=== PATIENT | male | born 1960 | race Caucasian/White ===

== ENCOUNTER 2020-05-02 07:41 | Day surgery (SDC) | payer BC, OTHER ==
[~2020-05-02 07:41] MED LIST: Lactated Ringers 1,000 ML IV SCH; Lidocaine 1%/Sod Bicarbonate in NS 8.4% 1 ML Syringe IDERM PRN; Sodium Chloride 0.9% 10 ML Syringe FLUSH PRN
[2020-05-02] MEDS ORDERED: Propofol 200 MG/20 ML SDV ONE (07:45)
[2020-05-02] MEDS ORDERED: Ondansetron 4 MG/2 ML SDV ONE (07:45)
[2020-05-02] MEDS ORDERED: Lidocaine 1% 4 ML ONE (07:45)
[2020-05-02] MEDS ORDERED: Ketamine 500 mg/10 ML MDV ONE (07:45)
[2020-05-02] MEDS ORDERED: fentaNYL 100 MCG/2 ML SDV ONE (07:45)
[2020-05-02] MEDS ORDERED: Midazolam 1 MG/ML 2 ML SDV ONE (07:45)
[2020-05-02] MEDS ORDERED: ceFAZolin 1 GM Vial ONE (07:55)
[2020-05-02] MEDS ORDERED: Sodium Chloride 0.9% 100 ML ONE (08:00)
--- NOTE | 2020-05-02 08:25 | PCM.HP.2 ---
H&P History of Present Illness - General Date of Service: 05/02/20 - History of Present Illness Initial Comments - Free Text/Narative: This is a 60-year-old male with past medical history of atrial fibrillation, diabetes mellitus and hypertension who comes today for an outpatient debridement of a chronic decubitus ulcer the base of his left fifth metatarsal head. As per patient he has been dealing with this wound for little over a year and has taken multiple antibiotic regimens without improvement for which he was referred by primary care provider to Dr. Anand, podiatry for evaluation recommended incision and debridement as well as external osteotomy of the metatarsal head. Patient states his pain normally is at a 6 out of 10 however currently he is pain-free. Has been taking antibiotics for the past 20 days. Has a prior left ankle fusion performed in 2013 without any perioperative complications. On Xarelto for atrial fibrillation, last dose was a couple of days ago. Allergies to shellfish, doxazosin and sitagliptin. (States sitagliptin just "did not sit with well with him") - Related Data Allergies/Adverse Reactions: Allergies Allergy/AdvReac Type Severity Reaction Status Date / Time doxazosin [From Cardura] Allergy Other Verified 05/01/20 14:25 shellfish derived Allergy Airway Verified 05/01/20 14:25 Tightness sitagliptin [From Januvia] Allergy Other Verified 05/01/20 14:25 Home Medications: Home Meds metFORMIN HCl [Metformin HCl] 1,000 mg PO BID 03/24/18 [History] Rivaroxaban [Xarelto] 20 mg PO DAILY@1800 #30 tablet 03/26/18 [Rx] Acetaminophen/HYDROcodone [[place] 325-5 MG] 1 - 2 tab PO Q6H 09/13/19 [History] Benazepril HCl 40 mg PO DAILY 09/13/19 [History] Cinnamon Bark [Cinnamon] 500 mg PO BID 09/13/19 [History] Diclofenac Sodium [Voltaren 1% Gel] 1 dose TOP QID PRN 09/13/19 [History] Empagliflozin [Jardiance] 25 mg PO DAILY 09/13/19 [History] Metoprolol Succinate 200 mg PO DAILY 09/13/19 [History] Rosuvastatin [Crestor] 10 mg PO DAILY 09/13/19 [History] Semaglutide [Ozempic] 1.5 ml SQ SHAH 09/13/19 [History] Sertraline [Zoloft] 50 mg PO DAILY 09/13/19 [History] Silver Sulfadiazine [Silvadene 1% Cream 20 GM] 1 dose TOP ASDIRECTED PRN 09/13/19 [History] glipiZIDE [Glipizide ER] 2.5 mg PO DAILY 09/13/19 [History] Past Medical History HEENT History: Reports: Impaired Vision Other HEENT History: wears glasses, excessive cerumen Cardiovascular History: Reports: Afib, High Cholesterol, Hypertension Respiratory History: Reports: Sleep Apnea Other Respiratory History: uses c pap Gastrointestinal History: Reports: Inflammatory Bowel Disease, Other (See Below) Other Gastrointestinal History: rectal fissure Genitourinary History: Reports: Diabetic Nephropathy [employer]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: 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 Other Musculoskeletal History: congenital pes cavus, right carpal tunnel syndrome Neurological History: 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 Psychiatric History: Reports: Anxiety, Depression Endocrine/Metabolic History: Reports: Diabetes, Type II, Obesity/BMI 30+ Hematologic History: 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 Immunologic History: 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 Oncologic (Cancer) History: 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 Dermatologic History: Reports: Other (See Below) Other Dermatologic History: diabetic foot ulcer, abcess, hematoma with evacuation, skin lesion with excision - Infectious Disease History Infectious Disease History: 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 - Past Surgical History Head Surgeries/Procedures: 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 Cardiovascular Surgical History: 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 Respiratory Surgical History: 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 GI Surgical History: Reports: Colonoscopy Female Surgical History: 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 Male Surgical History: 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 Endocrine Surgical History: 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 Neurological Surgical History: 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 Musculoskeletal Surgical History: Reports: Other (See Below) Other Musculoskeletal Surgeries/Procedures:: left ankle fusion, left ankle arth roscopy/arthrodesis Oncologic Surgical History: 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 Social & Family History - Family History Family Medical History: Noncontributory - Tobacco Use Smoking Status *Q: Never Smoker - Caffeine Use Caffeine Use: Reports: Soda - Recreational Drug Use Recreational Drug Use: No Drug Use in Last 12 Months: No - Living Situation & Occupation Living situation: Reports: , with Spouse Occupation: Employed H&P Review of Systems - Review of Systems: Review Of Systems: Comprehensive ROS is negative, except as noted in HPI. Exam - Exam Exam: See Below - Exam Quality Assessment: Other (Limited due to body habitus) General: Alert, Oriented, Cooperative. No: Mild Distress, Moderate Distress, Severe Distress HEENT: Conjunctiva Clear, EACs Clear, EOMI, Hearing Intact, Mucosa Moist & [place] Neck: Supple. No: Lymphadenopathy Lungs: Normal Respiratory Effort, Decreased Breath Sounds. No: Crackles, Rales, Rhonchi, Rub, Stridor, Wheezing Cardiovascular: Regular Rate, Regular Rhythm. No: Systolic Murmur, Diastolic Murmur, Rubs, Gallop/S3, Gallop/S4 GI/Abdominal Exam: Distended. No: Guarding, Rigid, Rebound, Tender Back Exam: No: Paraspinal Tenderness, Vertebral Tenderness Extremities: Normal Capillary Refill, Other (Trace edema up to mid [place]fall on RLE. Left foot with ankle and forced eversion, there is a scar of approximately 10 cm from prior surgery. 2 open wounds on the lateral aspect around the fifth metatarsal head and dorsal and plantar aspect of the foot, no active drainage. Capillary refill is preserved.) Peripheral Pulses: 2+: Radial (L), Radial (R), Dorsalis Pedis (L), Dorsalis Pedis (R) Skin: Warm, Dry Neuro Extensive - Mental Status: Alert, Oriented x3 Psychiatric: Alert, Anxious - Problem List (1) Diabetes mellitus SNOMED Code(s): 03196209 ICD Code: E11.9 - TYPE 2 DIABETES MELLITUS WITHOUT COMPLICATIONS Status: Acute Current Visit: Yes Qualifiers: Diabetes mellitus type: type 2 Diabetes mellitus terminal clerk insulin use: without longterm use Diabetes mellitus complication status: with neurologic complications Diabetes mellitus complication detail: with unspecified neuropathy Qualified Code(s): E11.40 - Type 2 diabetes mellitus with diabetic neuropathy, unspecified (2) Atrial fibrillation with controlled ventricular response SNOMED Code(s): 878315887 ICD Code: I48.91 - UNSPECIFIED ATRIAL FIBRILLATION Status: Acute Current Visit: Yes (3) Chronic anticoagulation SNOMED Code(s): 771986196 ICD Code: Z79.01 - HALF-WAY (CURRENT) USE OF ANTICOAGULANTS Status: Acute Current Visit: Yes (4) Dyslipidemia SNOMED Code(s): 608689412 ICD Code: E78.5 - HYPERLIPIDEMIA, UNSPECIFIED Status: Acute Current Visit: Yes (5) Peripheral neuropathy SNOMED Code(s): 596863789 ICD Code: G62.9 - POLYNEUROPATHY, UNSPECIFIED Status: Acute Current Visit: Yes (6) Chronic diabetic ulcer of left foot determined by examination SNOMED Code(s): 011802696 ICD Code: E11.621 - TYPE 2 DIABETES MELLITUS WITH FOOT ULCER; L97.529 - NON- PRESSURE CHRONIC ULCER OTH PRT LEFT FOOT W UNSP SEVERITY Status: Acute Current Visit: Yes (7) Obstructive sleep apnea on CPAP SNOMED Code(s): 96996759 ICD Code: G47.33 - OBSTRUCTIVE SLEEP APNEA (ADULT) (PEDIATRIC); Z99.89 - DEPENDENCE ON OTHER ENABLING MACHINES AND DEVICES Status: Acute Current Visit: Yes (8) Anxiety SNOMED Code(s): 98806683 ICD Code: F41.9 - ANXIETY DISORDER, UNSPECIFIED Status: Acute Current Visit: Yes (9) Depression SNOMED Code(s): 35447061 ICD Code: F32.9 - MAJOR DEPRESSIVE DISORDER, SINGLE EPISODE, UNSPECIFIED Status: Acute Current Visit: Yes (10) Hypertension SNOMED Code(s): 94003672 ICD Code: I10 - ESSENTIAL (PRIMARY) HYPERTENSION Status: Acute Current Visit: No (11) Morbidly obese SNOMED Code(s): 952054814 ICD Code: E66.01 - MORBID (SEVERE) OBESITY DUE TO EXCESS CALORIES Status: Acute Current Visit: No Problem List Initiated/Reviewed/Updated: Yes Assessment/Plan Comment:: Chronic diabetic ulcer of left foot determined by examination Diabetes mellitus, YeC1u-3.5% (01/2020) Peripheral neuropathy Came in today for podiatry procedure Home management with metformin, Jardiance, Ozempic and glipizide Awsda-lj-qaut glucose today is 136 Took all medications yesterday Pre-operative labs Serum glucose of 153 and a urine glucose greater than 500, urine glucose likely lab error as kidney threshold for glucose is greater than 180 CBC with no white count, hemoglobin of 14.4 and hematocrit of 45, platelets of 154,000 Chemistry with normal electrolytes, GFR of 62 and normal LFTs MRSA and COVID screen are negative PLAN Plan for incision and debridement of left foot and ex-osteotectomy of left fifth metatarsal head Atrial fibrillation with controlled ventricular response, on Xarelto Chronic anticoagulation Rate controlled this morning Last time he took Xarelto was 2 days ago Rate controlled with diltiazem Did not take medication this morning PLAN Administer diltiazem now Telemetry during procedure Continue Xarelto as per surgical recommendations DVT prophylaxis with compression stockings as recommended Hypertension BP today none 130s/80s Home management with benazepril and metoprolol succinate PLAN Administer metoprolol now PRN hydralazine for SBP greater than 200 and DBP greater than 100 Dyslipidemia No acute issues PLAN Continue statin after surgery Obstructive sleep apnea on CPAP Morbid obesity Compliant with CPAP PLAN Monitor CO2 and O2 levels during surgery Oxygen replacement in periop as needed Anxiety Depression No acute issues PLAN Continue home Sertraline after surgery Perioperative risks Estimated risk probability for perioperative myocardial infarction or cardiac arrest (Tyler score) is 0.14% Estimated risk of adverse outcome with noncardiac surgery is very low risk Estimated rate of myocardial infarction, pulmonary edema, ventricular fibrillation, cardiac arrest, or complete heart block (revised cardiac indexLee criteria) is 0.4% - Mortality Measure Prognosis:: Good
[2020-05-02] MEDS ORDERED: Diltiazem IR 30 MG Tab PO ONE (08:30)
[2020-05-02] MEDS ORDERED: Bupivacaine 0.5% 30 ML SDV ONE (08:30)
[2020-05-02] MEDS ORDERED: Lidocaine 1% 30 ML SDV ONE (08:30)
[2020-05-02] MEDS ORDERED: Metoprolol Succinate 50 MG Tab.ER PO ONE (08:30)
--- NOTE | 2020-05-02 09:35 | PCM.PREANE ---
Preanesthetic Assessment - Procedure Proposed Procedure: I and D Left Foot ulcer and exosectomy 5th metatarsal head - Anesthesia/Transfusion/Family Hx Anesthesia History: Prior Anesthesia Reaction Type of Anesthesia Reaction: Other (see below) (Spinal Headache, required blood patch several years ago at [facility]) Transfusion History: No Prior Transfusion(s) Intubation History: Unknown - Review of Systems General: No Symptoms Pulmonary: No Symptoms Cardiovascular: No Symptoms Gastrointestinal: No Symptoms Neurological: Numbness, Tingling (Diabetic neuropathy) Other: 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 (Morbid Obesity, BMI 43. ), Easy Bleeding, Easy Bruising (On xarelto stopped 04/28 for procedure. History of a fib. ), Diabetes (Type II, oral medication for control. Elevated A1C. ), Depression, Anxiety - Physical Assessment NPO Status Date: 05/01/20 NPO Status Time: 23:59 Vital Signs: Last Vital Signs Temp 35.7 C L 05/02/20 07:40 Pulse 78 05/02/20 08:21 Resp 18 05/02/20 07:40 BP 131/75 05/02/20 08:21 Pulse Ox 93 L 05/02/20 07:40 Height: 2.03 m Weight: 177.35 kg ASA Class: 3 Mental Status: Alert & Oriented x3 Airway Class: Mallampati = 1 Dentition: Reports: Dante(s), Caries Thyro-Mental Finger Breadths: 3 Mouth Opening Finger Breadths: 3 ROM/Head Extension: Full Lungs: Clear to Auscultation, Normal Respiratory Effort Cardiovascular: Regular Rate, Regular Rhythm - Lab Values: Laboratory Last Values POC Glucose 136 mg/dL (70-105) H 05/02/20 08:12 SARS-CoV-2 (PCR) Not detected (NOT DETECT) 04/29/20 09:50 - Imaging/EKG Impressions: EKG SR at 72bpm ECHO EF 60-65% Grade II diastolic Dysfunction, moderate aortic regurgitation. - Allergies Allergies/Adverse Reactions: Allergies Allergy/AdvReac Type Severity Reaction Status Date / Time doxazosin [From Cardura] Allergy Other Verified 05/01/20 14:25 shellfish derived Allergy Airway Verified 05/01/20 14:25 Tightness sitagliptin [From Januvia] Allergy Other Verified 05/01/20 14:25 - Blood Blood Available: No - Anesthesia Plan Pre-Op Medication Ordered: Beta William Beta William: Metoprolol Med Last Dose Date: 05/02/20 Med Last Dose Time: 08:21 - Acknowledgements Anesthesia Type Planned: Regional Block (Ankle block per Dr. Anand), MAC Pt an Appropriate Candidate for the Planned Anesthesia: Yes Alternatives and Risks of Anesthesia Discussed w Pt/Guardian: Yes Pt/Guardian Understands and Agrees with Anesthesia Plan: Yes PreAnesthesia Questionnaire HEENT History: Reports: Impaired Vision Other HEENT History: wears glasses, excessive cerumen Cardiovascular History: Reports: Afib, High Cholesterol, Hypertension Respiratory History: Reports: Sleep Apnea Other Respiratory History: uses c pap Gastrointestinal History: Reports: Inflammatory Bowel Disease, Other (See Below) Other Gastrointestinal History: rectal fissure Genitourinary History: Reports: Diabetic Nephropathy 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 Other Musculoskeletal History: congenital pes cavus, right carpal tunnel syndrome Neurological History: 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 Psychiatric History: Reports: Anxiety, Depression Endocrine/Metabolic History: Reports: Diabetes, Type II, Obesity/BMI 30+ Hematologic History: 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 Immunologic History: 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 Oncologic (Cancer) History: 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 Dermatologic History: Reports: Other (See Below) Other Dermatologic History: diabetic foot ulcer, abcess, hematoma with evacuation, skin lesion with excision - Infectious Disease History Infectious Disease History: 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 - Past Surgical History Head Surgeries/Procedures: 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 Cardiovascular Surgical History: 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 Respiratory Surgical History: 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 GI Surgical History: Reports: Colonoscopy Female Surgical History: 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 Male Surgical History: 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 Endocrine Surgical History: 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 Neurological Surgical History: 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 Musculoskeletal Surgical History: Reports: Other (See Below) Other Musculoskeletal Surgeries/Procedures:: left ankle fusion, left ankle arthroscopy/arthrodesis Oncologic Surgical History: 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 - SUBSTANCE USE Smoking Status *Q: Never Smoker Recreational Drug Use History: No - HOME MEDS Home Medications: Home Meds metFORMIN HCl [Metformin HCl] 1,000 mg PO BID 03/24/18 [History] Rivaroxaban [Xarelto] 20 mg PO DAILY@1800 #30 tablet 03/26/18 [Rx] Acetaminophen/HYDROcodone [[place] 325-5 MG] 1 - 2 tab PO Q6H 09/13/19 [History] Benazepril HCl 40 mg PO DAILY 09/13/19 [History] Cinnamon Bark [Cinnamon] 500 mg PO BID 09/13/19 [History] Diclofenac Sodium [Voltaren 1% Gel] 1 dose TOP QID PRN 09/13/19 [History] Empagliflozin [Jardiance] 25 mg PO DAILY 09/13/19 [History] Metoprolol Succinate 200 mg PO DAILY 09/13/19 [History] Rosuvastatin [Crestor] 10 mg PO DAILY 09/13/19 [History] Semaglutide [Ozempic] 1.5 ml SQ SHAH 09/13/19 [History] Sertraline [Zoloft] 50 mg PO DAILY 09/13/19 [History] Silver Sulfadiazine [Silvadene 1% Cream 20 GM] 1 dose TOP ASDIRECTED PRN 09/13/19 [History] glipiZIDE [Glipizide ER] 2.5 mg PO DAILY 09/13/19 [History] - CURRENT (IN HOUSE) MEDS Current Meds: Current Medications Lactated Ringer's (Ringers, Lactated) 1,000 mls @ 125 mls/hr IV ASDIRECTED [facility] Lidocaine/Sodium Bicarbonate (Buffered Lidocaine 1% In Ns 8.4%) 0.25 ml IDERM ONETIME PRN PRN Reason: Prior to IV Start Discontinued Medications Bupivacaine HCl (Marcaine 0.5%) Confirm Administered Dose 30 ml .ROUTE .STK-MED ONE Stop: 05/02/20 08:31 Cefazolin Sodium (Ancef) Confirm Administered Dose 3 gm .ROUTE .STK-MED ONE Stop: 05/02/20 07:56 Diltiazem HCl (Cardizem) 30 mg PO ONETIME ONE Stop: 05/02/20 08:31 Last Admin: 05/02/20 08:21 Dose: 30 mg Documented by: Fentanyl (Sublimaze) Confirm Administered Dose 100 mcg .ROUTE .STK-MED ONE Stop: 05/02/20 07:46 Lactated Ringer's (Ringers, Lactated) 1,000 mls @ 125 mls/hr IV ASDIRECTED [facility] Stop: 09/14/19 23:00 Lactated Ringer's (Ringers, Lactated) 1,000 mls @ 125 mls/hr IV ASDIRECTED [facility] Stop: 04/18/20 23:00 Lidocaine HCl (Xylocaine-Mpf 1%) Confirm Administered Dose 4 mls @ as directed .ROUTE .STK-MED ONE Stop: 05/02/20 07:46 Sodium Chloride (Normal Saline) Confirm Administered Dose 100 mls @ as directed .ROUTE .STK-MED ONE Stop: 05/02/20 08:01 Ketamine HCl (Ketalar) Confirm Administered Dose 500 mg .ROUTE .STK-MED ONE Stop: 05/02/20 07:46 Lidocaine HCl (Xylocaine-Mpf 1%) Confirm Administered Dose 30 ml .ROUTE .STK-MED ONE Stop: 05/02/20 08:31 Lidocaine/Sodium Bicarbonate (Buffered Lidocaine 1% In Ns 8.4%) 0.25 ml IDERM ONETIME PRN PRN Reason: Prior to IV Start Stop: 09/14/19 18:00 Lidocaine/Sodium Bicarbonate (Buffered Lidocaine 1% In Ns 8.4%) 0.25 ml IDERM ONETIME PRN PRN Reason: Prior to IV Start Stop: 04/18/20 23:00 Metoprolol Succinate (Toprol Xl) 200 mg PO ONETIME ONE Stop: 05/02/20 08:31 Last Admin: 05/02/20 08:21 Dose: 200 mg Documented by: Midazolam HCl (Versed 1 Mg/Ml) Confirm Administered Dose 2 mg .ROUTE .STK-MED ONE Stop: 05/02/20 07:46 Ondansetron HCl (Zofran) Confirm Administered Dose 4 mg .ROUTE .STK-MED ONE Stop: 05/02/20 07:46 Propofol (Diprivan 20 Ml) Confirm Administered Dose 600 mg .ROUTE .STK-MED ONE Stop: 05/02/20 07:46 Sodium Chloride (Saline Flush) 10 ml FLUSH ASDIRECTED PRN PRN Reason: Keep Vein Open Stop: 09/14/19 18:00 Sodium Chloride (Saline Flush) 10 ml FLUSH ASDIRECTED PRN PRN Reason: Keep Vein Open Stop: 04/18/20 23:00
[2020-05-02] MEDS ORDERED: Lactated Ringers 1,000 ML ONE (09:39)
--- NOTE | 2020-05-02 09:49 | PCM.OPNOTE ---
- General Post-Op/Procedure Note Date of Surgery/Procedure: 05/02/20 Operative Procedure(s): 1.) Exostectomy, LEFT 5th metatarsal head. 2.) Incision/Drainage, LEFT 5th infected ulceration. Pre Op Diagnosis: 1.) Painful/Symptomatic infected diabetic abscessed ulceration, sub LEFT 5th metatarsal head. 2.) Painful/Symptomatic LEFT plantarly prominent 5th metatarsal head. Post-Op Diagnosis: Same Anesthesia Technique: Local, MAC Primary Surgeon: Tj Anand II Anesthesia Provider: helen Pathology: Aerobic, anaerobic swabs. plantar LEFT 5th metatarsal head. EBL in mLs: 10 Complications: None Condition: Good Free Text/Narrative:: patient left the OR for recovery with vital signs stable & vascular status grossly intact, LEFT foot.
--- NOTE | 2020-05-02 09:58 | PCM48HPAN ---
Post Anesthesia Note - EVALUATION WITHIN 48HRS OF ANESTHETIC Vital Signs in Normal Range: Yes Patient Participated in Evaluation: Yes Respiratory Function Stable: Yes Airway Patent: Yes Cardiovascular Function Stable: Yes Hydration Status Stable: Yes Pain Control Satisfactory: Yes Nausea and Vomiting Control Satisfactory: Yes Mental Status Recovered: Yes Vital Signs: Last Vital Signs Temp 35.7 C L 05/02/20 07:40 Pulse 78 05/02/20 08:21 Resp 18 05/02/20 07:40 BP 131/75 05/02/20 08:21 Pulse Ox 93 L 05/02/20 07:40 0949 120/74 77 16 95% 97.4F
[2020-05-02] MEDS ORDERED: Acetaminophen/oxyCODONE 325-5 MG Tab PO PRN (11:14)
--- NOTE | 2020-05-02 14:40 | OR ---
DATE OF OPERATION: 05/02/2020 SURGEON: Tj Anand II, DPM LOCATION: [facility]. ANESTHESIA: MAC with local block about the left foot. ANESTHESIA PROVIDER: Leonidas Arriola CRNA HEMOSTASIS: Left pneumatic ankle tourniquet at 250 mmHg pressure. PREOPERATIVE DIAGNOSIS: 1. Painful and symptomatic chronic diabetic ulceration, left foot. 2. Painful and symptomatic plantarly prominent left fifth metatarsal head. POSTOPERATIVE DIAGNOSIS: 1. Painful and symptomatic chronic diabetic ulceration, left foot. 2. Painful and symptomatic plantarly prominent left fifth metatarsal head. OPERATION PERFORMED: Exostectomy of left fifth metatarsal head and incision and drainage of left fifth metatarsophalangeal joint. DESCRIPTION OF PROCEDURE: Upon arrival on admission to the hospital, the patient was examined and cleared for surgery by the assigned anesthesia provider. IV access was obtained in the preoperative area after which prophylactic antibiotics consisting of 3 g of Ancef were administered IV piggyback after the patient was brought to the OR and left on the gurney in the supine position. The patient was given a combination of sedations and was adequately sedated before receiving 10 mL of 1:1 mixture of 1% lidocaine plain and 0.5% Marcaine plain in the form of local infiltrative block about the left fifth metatarsophalangeal joint. The left lower extremity was then wrapped with cotton Webril padding in preparation for nonsterile pneumatic ankle tourniquet, which was then draped with a sterile drape and secured with a towel clamp. Left lower extremity was then prepped and draped in usual aseptic manner. Left lower extremity was then elevated and exsanguinated with the use of an Esmarch bandage before inflating the left pneumatic ankle tourniquet to 250 mmHg pressure. The Esmarch bandage was removed, and left lower extremity was placed back to the level of the rney. Attention was then directed to the inferior lateral aspect of the left fifth metatarsophalangeal joint where an approximately 5 cm curvilinear incision was created at the junction of the dorsal and plantar skin. This was a controlled depth skin incision taken down to the level of subcutaneous structures with care taken to retract the vital neurovascular structures within the area as well as cauterize or ligate all superficial bleeders as deemed necessary. Continuous soft tissue dissection was taken down to the level of the tenocapsular structures, and an abscess was noted to be present that was at a sinus tract heading in the dorsal direction. This was evacuated and debrided, and aerobic and anaerobic swabs were taken from the area. After the incision was then created into the capsular structures and the fifth metatarsal head was freed of its soft tissue attachments, the plantarly prominent plantar condyles were then resected from lateral to medial and sent to pathology for gross microscopic evaluation. The wound was then inspected, and debridement was undertaken of the left fifth metatarsal ulceration, which was then debrided free, and all sinus tracts within the area were also obliterated. The wound was then copiously lavaged with sterile saline solution and closure was undertaken of the deep capsular structures with 3-0 Vicryl while the subcuticular level was reapproximated with 4-0 Vicryl and the skin was reapproximated with 4-0 nylon for running interlocking simple suture knots. The patient received an additional 10 mL of 0.5% Marcaine plain, and dressings would then consist of Betadine-soaked Adaptic gauze, 4 x 4 gauze, Kerlix, and an Edwin bandage. Upon completion of the surgery, the left pneumatic ankle tourniquet was inflated. It was noted that digits 1 through 5 of the left foot then became pink indicating normal vascular perfusion returned. The patient appeared to tolerate the procedure and anesthesia and left the OR for recovery with vital signs being stable and vascular status intact in digits 1 through 5 of left lower extremity. There were no apparent complications. In recovery, the patient received written and oral postoperative instructions as well as postoperative pain medication. The patient will ambulate partial weightbearing with an immobilization boot or a postoperative shoe of his choosing about the left foot and ankle. Estimated blood loss was approximately 10 mL and considered negligible. There were no apparent or obvious complications. ESTIMATED BLOOD LOSS: MMODAL /[id number]
== END 2020-05-02 11:55 | disposition home or self-care (01) ==
LOC: JD.SDS 07:41
PROVIDERS: ATTEND Podiatrist Foot & Ankle Surgery
DX: E11.621 Type 2 diabetes mellitus with foot ulcer (principal); L97.529 Non-pressure chronic ulcer of other part of left foot with unspecified severity; L02.612 Cutaneous abscess of left foot; B95.2 Enterococcus as the cause of diseases classified elsewhere; I48.91 Unspecified atrial fibrillation; E78.00 Pure hypercholesterolemia, unspecified; I10 Essential (primary) hypertension; E11.21 Type 2 diabetes mellitus with diabetic nephropathy; F41.9 Anxiety disorder, unspecified; Z01.812 Encounter for preprocedural laboratory examination; Z20.828 Contact with and (suspected) exposure to other viral communicable diseases; F32.9 Major depressive disorder, single episode, unspecified; E11.42 Type 2 diabetes mellitus with diabetic polyneuropathy; E66.01 Morbid (severe) obesity due to excess calories; G47.33 Obstructive sleep apnea (adult) (pediatric); Z99.89 Dependence on other enabling machines and devices; Z79.899 Other long term (current) drug therapy; Z91.013 Allergy to seafood; Z88.8 Allergy status to other drugs, medicaments and biological substances; Z79.84 Long term (current) use of oral hypoglycemic drugs; Z68.41 Body mass index [BMI] 40.0-44.9, adult
CPT/HCPCS: 28288; 82962; 87075; 87205; 87635; A9270; J0690; J2001; J2250; J2405; J2704; J3010; J3490; J7050; J7120; 87077; 87186; U0002

== ENCOUNTER 2020-07-29 07:50 | Day surgery (SDC) | payer OTHER ==
[~2020-07-29 07:50] MED LIST changes: +Lidocaine 1% 4 ML ONE; +Midazolam 1 MG/ML 2 ML SDV ONE; +Propofol 200 MG/20 ML SDV ONE; +fentaNYL 100 MCG/2 ML SDV ONE
--- NOTE | 2020-07-29 08:20 | PCM.PREANE ---
Preanesthetic Assessment - Procedure Proposed Procedure: sdcreening colonosocpy - Anesthesia/Transfusion/Family Hx Anesthesia History: Prior Anesthesia Without Reaction Family History of Anesthesia Reaction: No Transfusion History: No Prior Transfusion(s) Intubation History: Unknown - Review of Systems General: No Symptoms Pulmonary: No Symptoms Cardiovascular: No Symptoms Gastrointestinal: No Symptoms Neurological: No Symptoms Other: Reports: Diabetes, Anxiety - Physical Assessment NPO Status Date: 07/28/20 NPO Status Time: 22:00 Vital Signs: 151/84 78 94% 16 97.4 Height: 6 ft 8 in Weight: 176.629 kg ASA Class: 3 Mental Status: Alert & Oriented x3 Dentition: Reports: Normal Dentition Thyro-Mental Finger Breadths: 3 Mouth Opening Finger Breadths: 3 ROM/Head Extension: Full Lungs: Clear to Auscultation, Normal Respiratory Effort Cardiovascular: Regular Rate, Regular Rhythm - Lab Values: Laboratory Last Values POC Glucose 126 mg/dL (70-105) H 07/29/20 08:08 - Allergies Allergies/Adverse Reactions: Allergies Allergy/AdvReac Type Severity Reaction Status Date / Time doxazosin [From Cardura] Allergy Other Verified 05/01/20 14:25 shellfish derived Allergy Airway Verified 05/01/20 14:25 Tightness sitagliptin [From Januvia] Allergy Other Verified 05/01/20 14:25 - Blood Blood Available: No - Anesthesia Plan Beta William: Metoprolol Med Last Dose Date: 07/29/20 Med Last Dose Time: 07:00 - Acknowledgements Anesthesia Type Planned: MAC Pt an Appropriate Candidate for the Planned Anesthesia: Yes Alternatives and Risks of Anesthesia Discussed w Pt/Guardian: Yes Pt/Guardian Understands and Agrees with Anesthesia Plan: Yes PreAnesthesia Questionnaire HEENT History: Reports: Impaired Vision Other HEENT History: wears glasses, excessive cerumen Cardiovascular History: Reports: Afib, High Cholesterol, Hypertension Respiratory History: Reports: Sleep Apnea Other Respiratory History: uses c pap Gastrointestinal History: Reports: Inflammatory Bowel Disease, Other (See Below) Other Gastrointestinal History: rectal fissure Genitourinary History: Reports: Diabetic Nephropathy 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 Other Musculoskeletal History: congenital pes cavus, right carpal tunnel syndrome Neurological History: 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 Psychiatric History: Reports: Anxiety, Depression Endocrine/Metabolic History: Reports: Diabetes, Type II, Obesity/BMI 30+ Hematologic History: 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 Immunologic History: 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 Oncologic (Cancer) History: 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 Dermatologic History: Reports: Other (See Below) Other Dermatologic History: diabetic foot ulcer, abcess, hematoma with evacuation, skin lesion with excision - Infectious Disease History Infectious Disease History: 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 - Past Surgical History Head Surgeries/Procedures: 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 Cardiovascular Surgical History: 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 Respiratory Surgical History: 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 GI Surgical History: Reports: Colonoscopy Female Surgical History: 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 Male Surgical History: 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 Endocrine Surgical History: 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 Neurological Surgical History: 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 Musculoskeletal Surgical History: Reports: Other (See Below) Other Musculoskeletal Surgeries/Procedures:: left ankle fusion, left ankle arthroscopy/arthrodesis Oncologic Surgical History: 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 - SUBSTANCE USE Tobacco Use Status *Q: Never Tobacco User Tobacco Use Within Last Twelve Months: No Second Hand Smoke Exposure: No Days Per Week of Alcohol Use: 1 Recreational Drug Use History: No - HOME MEDS Home Medications: Home Meds metFORMIN HCl [Metformin HCl] 1,000 mg PO BID 03/24/18 [History] Rivaroxaban [Xarelto] 20 mg PO DAILY@1800 #30 tablet 03/26/18 [Rx] Acetaminophen/HYDROcodone [[place] 325-5 MG] 1 - 2 tab PO Q6H 09/13/19 [History] Benazepril HCl 40 mg PO DAILY 09/13/19 [History] Cinnamon Bark [Cinnamon] 500 mg PO BID 09/13/19 [History] Diclofenac Sodium [Voltaren 1% Gel] 1 dose TOP QID PRN 09/13/19 [History] Empagliflozin [Jardiance] 25 mg PO DAILY 09/13/19 [History] Metoprolol Succinate 200 mg PO DAILY 09/13/19 [History] Rosuvastatin [Crestor] 10 mg PO DAILY 09/13/19 [History] Semaglutide [Ozempic] 1.5 ml SQ SHAH 09/13/19 [History] Sertraline [Zoloft] 50 mg PO DAILY 09/13/19 [History] Silver Sulfadiazine [Silvadene 1% Cream 20 GM] 1 dose TOP ASDIRECTED PRN 09/13/19 [History] glipiZIDE [Glipizide ER] 2.5 mg PO DAILY 09/13/19 [History] - CURRENT (IN HOUSE) MEDS Current Meds: Current Medications Lactated Ringer's (Ringers, Lactated) 1,000 mls @ 125 mls/hr IV ASDIRECTED LULÚ Lidocaine/Sodium Bicarbonate (Buffered Lidocaine 1% In Ns 8.4%) 0.25 ml IDERM ONETIME PRN PRN Reason: Prior to IV Start Sodium Chloride (Saline Flush) 10 ml FLUSH ASDIRECTED PRN PRN Reason: Keep Vein Open Discontinued Medications Fentanyl (Sublimaze) Confirm Administered Dose 100 mcg .ROUTE .STK-MED ONE Stop: 07/29/20 06:54 Lidocaine HCl (Xylocaine-Mpf 1%) Confirm Administered Dose 4 mls @ as directed .ROUTE .STK-MED ONE Stop: 07/29/20 06:54 Midazolam HCl (Versed 1 Mg/Ml) Confirm Administered Dose 2 mg .ROUTE .STK-MED ONE Stop: 07/29/20 06:55 Propofol (Diprivan 20 Ml) Confirm Administered Dose 400 mg .ROUTE .STK-MED ONE Stop: 07/29/20 06:54
--- NOTE | 2020-07-29 09:08 | PCM48HPAN ---
Post Anesthesia Note - EVALUATION WITHIN 48HRS OF ANESTHETIC Vital Signs in Normal Range: Yes Patient Participated in Evaluation: Yes Respiratory Function Stable: Yes Airway Patent: Yes Cardiovascular Function Stable: Yes Hydration Status Stable: Yes Pain Control Satisfactory: Yes Nausea and Vomiting Control Satisfactory: Yes Mental Status Recovered: Yes (rests- no comp[laints-) Vital Signs: Last Vital Signs Temp 97.2 F 07/29/20 07:50 Pulse 78 07/29/20 07:50 Resp 16 07/29/20 07:50 BP 151/84 H 07/29/20 07:50 Pulse Ox 94 L 07/29/20 07:50 0900 91% 76 16 97.3 148/84
--- NOTE | 2020-07-29 09:08 | PCM.OPNOTE ---
- General Post-Op/Procedure Note Date of Surgery/Procedure: 07/29/20 Operative Procedure(s): Colonoscopy Findings: Normal colonoscopy Pre Op Diagnosis: Age related colon cancer screening Post-Op Diagnosis: Normal colonoscopy Anesthesia Technique: MAC Primary Surgeon: Yoshi Jensen Anesthesia Provider: Dale De Anda EBL in mLs: 0 Complications: None Condition: Good Free Text/Narrative:: After the patient gave verbal and written consent he was placed on blood press ure and pulse ox monitoring. He was given IV sedation which he tolerated well. The olympus colonoscope was inserted per rectum and advanced to the cecum without difficulty. Ileocecal valve and appendiceal orfice were imaged document cecal intubation. The colonoscope was slowly withdrawn. The prep was good. The views were good. The mucosal surfaces were carefully examined. The colonoscope was then retroflexed in the rectum and the details above. There were no complications the patient tolerated procedure well and the patient left the endoscopy suite in good condition. Next Colonoscopy is recommended in 10 years for screening purposes.
== END 2020-07-29 10:06 | disposition home or self-care (01) ==
LOC: JD.SDS 07:50
PROVIDERS: ATTEND Family Medicine
DX: Z12.11 Encounter for screening for malignant neoplasm of colon (principal); E11.9 Type 2 diabetes mellitus without complications; I10 Essential (primary) hypertension; G47.33 Obstructive sleep apnea (adult) (pediatric); I48.19 Other persistent atrial fibrillation; F41.9 Anxiety disorder, unspecified; F32.9 Major depressive disorder, single episode, unspecified; E78.00 Pure hypercholesterolemia, unspecified; B34.9 Viral infection, unspecified; E66.9 Obesity, unspecified; Z79.899 Other long term (current) drug therapy; Z79.84 Long term (current) use of oral hypoglycemic drugs; Z88.8 Allergy status to other drugs, medicaments and biological substances; Z91.013 Allergy to seafood; Z98.890 Other specified postprocedural states; Z68.41 Body mass index [BMI] 40.0-44.9, adult
CPT/HCPCS: 45378; 82962; J2001; J2250; J2704; J3010; J7120

== ENCOUNTER → 2021-03-25 | Day surgery (SDC) | payer BC, OTHER ==
[~2021-03-25] MED LIST changes: +Bupivacaine 0.25% 10 ML SDV ONE; +Bupivacaine 0.5% 30 ML SDV ONE; +Lidocaine 1% 30 ML SDV ONE; +Vancomycin 2 GM in Sodium Chloride 0.9% 500 ML IV ONE
--- NOTE | 2021-03-25 11:47 | PCM.PREANE ---
Preanesthetic Assessment - Procedure Proposed Procedure: amputation right second toe - Anesthesia/Transfusion/Family Hx Anesthesia History: Prior Anesthesia Without Reaction Family History of Anesthesia Reaction: No Transfusion History: No Prior Transfusion(s) Intubation History: Unknown - Review of Systems General: No Symptoms Pulmonary: No Symptoms Cardiovascular: No Symptoms Gastrointestinal: No Symptoms Neurological: No Symptoms Other: Reports: Diabetes, Depression, Anxiety - Physical Assessment NPO Status Date: 03/24/21 NPO Status Time: 20:00 Vital Signs: 144/88 67 99% 97.0 16 Height: 6 ft 8 in Weight: 175.54 kg ASA Class: 3 Mental Status: Alert & Oriented x3 Airway Class: Mallampati = 1 Dentition: Reports: Normal Dentition Thyro-Mental Finger Breadths: 3 Mouth Opening Finger Breadths: 3 ROM/Head Extension: Full Lungs: Clear to Auscultation, Normal Respiratory Effort Cardiovascular: Regular Rate, Regular Rhythm - Lab Values: Laboratory Last Values POC Glucose 106 mg/dL (70-99) H 03/25/21 11:14 - Allergies Allergies/Adverse Reactions: Allergies Allergy/AdvReac Type Severity Reaction Status Date / Time doxazosin [From Cardura] Allergy Other Verified 03/24/21 14:58 shellfish derived Allergy Airway Verified 03/24/21 14:58 Tightness sitagliptin [From Januvia] Allergy Other Verified 03/24/21 14:58 - Anesthesia Plan Beta William: Metoprolol Med Last Dose Date: 03/25/21 Med Last Dose Time: 07:00 - Acknowledgements Anesthesia Type Planned: MAC Pt an Appropriate Candidate for the Planned Anesthesia: Yes Alternatives and Risks of Anesthesia Discussed w Pt/Guardian: Yes Pt/Guardian Understands and Agrees with Anesthesia Plan: Yes PreAnesthesia Questionnaire HEENT History: Reports: Impaired Vision Other HEENT History: wears glasses, excessive cerumen Cardiovascular History: Reports: Afib, High Cholesterol, Hypertension Respiratory History: Reports: Sleep Apnea Other Respiratory History: uses c pap Gastrointestinal History: Reports: Inflammatory Bowel Disease, Other (See Below) Other Gastrointestinal History: rectal fissure Genitourinary History: Reports: Diabetic Nephropathy 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 Other Musculoskeletal History: congenital pes cavus, right carpal tunnel syndrome Neurological History: 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 Psychiatric History: Reports: Anxiety, Depression Endocrine/Metabolic History: Reports: Diabetes, Type II, Obesity/BMI 30+ Hematologic History: 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 Immunologic History: 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 Oncologic (Cancer) History: 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 Dermatologic History: Reports: Other (See Below) Other Dermatologic History: diabetic foot ulcer, abcess, hematoma with evacuation, skin lesion with excision - Infectious Disease History Infectious Disease History: 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 - Past Surgical History Head Surgeries/Procedures: 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 Cardiovascular Surgical History: 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 Respiratory Surgical History: 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 GI Surgical History: Reports: Colonoscopy Female Surgical History: 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 Male Surgical History: 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 Endocrine Surgical History: 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 Neurological Surgical History: 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 Musculoskeletal Surgical History: Reports: Other (See Below) Other Musculoskeletal Surgeries/Procedures:: left ankle fusion, left ankle arthroscopy/arthrodesis, finger ORIF Oncologic Surgical History: 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 - SUBSTANCE USE Tobacco Use Status *Q: Never Tobacco User Tobacco Use Within Last Twelve Months: No Second Hand Smoke Exposure: No Days Per Week of Alcohol Use: 0 Recreational Drug Use History: No - HOME MEDS Home Medications: Home Meds metFORMIN HCl [Metformin HCl] 1,000 mg PO BID 03/24/18 [History] Rivaroxaban [Xarelto] 20 mg PO DAILY@1800 #30 tablet 03/26/18 [Rx] Benazepril HCl 40 mg PO DAILY 09/13/19 [History] Cinnamon Bark [Cinnamon] 500 mg PO BID 09/13/19 [History] Diclofenac Sodium [Voltaren 1% Gel] 1 dose TOP QID PRN 09/13/19 [History] Empagliflozin [Jardiance] 25 mg PO DAILY 09/13/19 [History] Metoprolol Succinate 200 mg PO DAILY 09/13/19 [History] Rosuvastatin [Crestor] 10 mg PO DAILY 09/13/19 [History] Semaglutide [Ozempic] 1 mg SQ SHAH 09/13/19 [History] Sertraline [Zoloft] 50 mg PO DAILY 09/13/19 [History] glipiZIDE [Glipizide ER] 2.5 mg PO DAILY 09/13/19 [History] Cyanocobalamin (Vitamin B-12) [Vitamin B-12] 500 mcg PO DAILY 03/24/21 [History] Multivitamin 1 tab PO DAILY 03/24/21 [History] Mupirocin Calcium [Bactroban] 1 dose TOP BID 03/24/21 [History] Sulfamethoxazole/Trimethoprim [Bactrim Ds Tablet] 1 dose PO BID 03/24/21 [History] - CURRENT (IN HOUSE) MEDS Current Meds: Current Medications Lactated Ringer's (Ringers, Lactated) 1,000 mls @ 125 mls/hr IV ASDIRECTED [facility] Stop: 03/25/21 23:00 Last Admin: 03/25/21 11:25 Dose: 125 mls/hr Documented by: Vancomycin HCl 2 gm/ Sodium (Chloride) 500 mls @ 250 mls/hr IV ONETIME ONE Stop: 03/25/21 13:14 Last Admin: 03/25/21 11:38 Dose: 250 mls/hr Documented by: Lidocaine/Sodium Bicarbonate (Lidocaine 1%/Sod Bicarbonate In Ns 8.4% 1 Ml Syringe) 0.25 ml IDERM ONETIME PRN PRN Reason: Prior to IV Start Stop: 03/25/21 18:00 Sodium Chloride (Sodium Chloride 0.9% 10 Ml Syringe) 10 ml FLUSH ASDIRECTED PRN PRN Reason: Keep Vein Open Stop: 03/25/21 18:00 Vancomycin HCl (Pharmacy To Dose - Vancomycin) 0 dose .XX ASDIRECTED [facility] Stop: 03/25/21 12:00 Discontinued Medications Bupivacaine HCl (Bupivacaine 0.25% 10 Ml Sdv) Confirm Administered Dose 10 ml .ROUTE .STK-MED ONE Stop: 03/25/21 11:15 Bupivacaine HCl (Bupivacaine 0.5% 30 Ml Sdv) Confirm Administered Dose 30 ml .ROUTE .STK-MED ONE Stop: 03/25/21 11:16 Lidocaine HCl (Lidocaine 1% 30 Ml Sdv) Confirm Administered Dose 30 ml .ROUTE .STK-MED ONE Stop: 03/25/21 11:16
--- NOTE | 2021-03-25 13:12 | PCM48HPAN ---
Post Anesthesia Note - EVALUATION WITHIN 48HRS OF ANESTHETIC Vital Signs in Normal Range: Yes Patient Participated in Evaluation: Yes Respiratory Function Stable: Yes Airway Patent: Yes Cardiovascular Function Stable: Yes Hydration Status Stable: Yes Pain Control Satisfactory: Yes Nausea and Vomiting Control Satisfactory: Yes Mental Status Recovered: Yes Vital Signs: Last Vital Signs Temp 98.1 F 03/25/21 10:40 Pulse 74 03/25/21 10:40 Resp 16 03/25/21 10:40 BP 135/74 03/25/21 10:40 Pulse Ox 91 L 03/25/21 10:40 1306 97.5 18 68 133/72 94%
--- NOTE | 2021-03-25 13:17 | PCM.OPNOTE ---
- General Post-Op/Procedure Note Date of Surgery/Procedure: 03/25/21 Operative Procedure(s): Amputation, RIGHT 2nd toe to MTP joint Pre Op Diagnosis: Osteomyelitis, RIGHT 2nd toe. Cellulitis, RIGHT foot. Diabetic ulceration, RIGHT 2nd toe Post-Op Diagnosis: Same Anesthesia Technique: Local, MAC Primary Surgeon: Tj Anand II Anesthesia Provider: Dale De Anda Pathology: bone sent for gross/microscopic analysis EBL in mLs: 10 Complications: None Condition: Good Free Text/Narrative:: Patient left the OR for recovery with vital signs stable & vascular status intact, RIGHT foot
--- NOTE | 2021-03-25 15:31 | OR ---
DATE OF OPERATION: 03/25/2021 SURGEON: Tj Anand II, DPM LOCATION: [facility] [place], [place], ANESTHESIA: MAC with local block about the right foot. ANESTHESIA PROVIDER: Dale De Anda CRNA. HEMOSTASIS: Right pneumatic ankle tourniquet to 250 mmHg pressure. PREOPERATIVE DIAGNOSIS: 1. Painful and symptomatic osteomyelitis, right 2nd toe. 2. Painful and symptomatic diabetic ulcer, distal tip, right 2nd toe. 3. Painful and symptomatic cellulitis, right foot. POSTOPERATIVE DIAGNOSIS: 1. Painful and symptomatic osteomyelitis, right 2nd toe. 2. Painful and symptomatic diabetic ulcer, distal tip, right 2nd toe. 3. Painful and symptomatic cellulitis, right foot. OPERATION PERFORMED: Amputation, right 2nd toe to MTP joint. DESCRIPTION OF PROCEDURE: Upon arrival and admission to the hospital, patient was examined and cleared for surgery by the assigned anesthesia provider. IV access was obtained in the preoperative area, after which patient was given prophylactic antibiotics consisting of 1 g of vancomycin. The patient was then brought to the OR via gurney and left on the gurney for positioning for the surgery. The patient was given a combination of sedations and was adequately sedated before receiving 10 mL of 1:1 mixture, 1% lidocaine plain and 0.5% Marcaine plain. This was of little effect to the patient due to his profound symptoms of neuropathy. The right lower extremity above the ankle joint was prepared with cotton Webril padding for nonsterile pneumatic ankle tourniquet, which was then draped with a sterile drape. The right lower extremity was then elevated and the right pneumatic ankle tourniquet was inflated to 250 mmHg pressure. Right lower extremity was then placed back to the level of operating room table. Attention was directed over the dorsal aspect of the right 2nd digit. There was a linear incision created 2 cm beyond the 2nd MTPJ and was carried into a looped fashion circumferentially around the base of the right 2nd toe. This was a controlled depth skin incision that was taken actually down all the way to bone and disarticulation was undertaken at the level of the 2nd metatarsophalangeal joint. The bone involving the 2nd and 3rd digits appeared to be necrotic in nature and was adequately resected and sent to pathology for gross and microscopic evaluation. The wound was then copiously lavaged with a pulse lavage system utilizing 3000 of normal saline. The skin was then reapproximated utilizing 3-0 Vicryl as well as the overlying skin be reapproximated with 3-0 nylon. Anesthesia was tested and found to be adequate. Dressings were then consisted of Betadine-soaked Adaptic gauze, 4 x 4 gauze, Shirin, and an Edwin bandage. Upon completion of surgery, the right pneumatic ankle tourniquet was deflated and it was noted that digits 1 through 5 of the right lower extremity became pink indicating normal vascular perfusion return. The patient appeared to tolerate the procedure and anesthesia well, left the OR for recovery with his vital signs stable and vascular status intact digits 1 through 5 of the right lower extremity with no apparent complications. In recovery, patient received written and oral postop instructions as well as postoperative pain medication. He will continue to take his oral antibiotics that were prescribed to him prior to surgery. The patient will ambulate partial weightbearing with immobilization boot or a postoperative shoe of his choice about the right foot and ankle. Estimated blood loss for this procedure was considered negligible at 10 mL. There were no apparent or obvious complications. ESTIMATED BLOOD LOSS: MMODAL /[id number]
== END | disposition home or self-care (01) ==
LOC: JD.SDS 10:40
PROVIDERS: ATTEND Podiatrist Foot & Ankle Surgery
DX: M86.171 Other acute osteomyelitis, right ankle and foot (principal); E11.621 Type 2 diabetes mellitus with foot ulcer; L97.514 Non-pressure chronic ulcer of other part of right foot with necrosis of bone; L03.115 Cellulitis of right lower limb; I10 Essential (primary) hypertension; E78.00 Pure hypercholesterolemia, unspecified; I48.19 Other persistent atrial fibrillation; F41.9 Anxiety disorder, unspecified; F32.9 Major depressive disorder, single episode, unspecified; E78.5 Hyperlipidemia, unspecified; G47.33 Obstructive sleep apnea (adult) (pediatric); E66.9 Obesity, unspecified; Z68.41 Body mass index [BMI] 40.0-44.9, adult; Z88.8 Allergy status to other drugs, medicaments and biological substances; Z91.013 Allergy to seafood; Z79.899 Other long term (current) drug therapy; Z79.84 Long term (current) use of oral hypoglycemic drugs
CPT/HCPCS: 28820; 82947; J2250; J2704; J3010; J3370; J3490; J7040; J7120; 01480